=== PATIENT | female | born 1995 | race Caucasian/White ===

== ENCOUNTER 2022-01-28 16:51 | Observation (INO) | payer BC ==
[2022-01-28] MEDS: Dexamethasone 4 MG Tab PO STA (17:27)
[2022-01-28] MEDS ORDERED: Acetaminophen 325 MG Tab PO PRN (17:51)
[2022-01-28] MEDS ORDERED: Ondansetron 4 MG Tab.DIS PO PRN (17:51)
[2022-01-28] MEDS ORDERED: Non-Formulary Medication 1 Each (Budesonide/Formoterol Fumarate [Symbicort 80-4.5 Mcg Inha INH PRN (17:51)
[2022-01-28] MEDS: Multivitamin Tab PO SCH (19:33)
[2022-01-29] MEDS: Cyanocobalamin (Vitamin B12) 1,000 MCG Tab PO SCH (07:50)
[2022-01-29] MEDS: Loratadine 10 MG Tab PO SCH (07:50)
[2022-01-29] MEDS: Dexamethasone 4 MG Tab PO SCH (07:51)
[2022-01-29 07:59] VITALS: BP 100/50; PULSE 83
== END 2022-01-29 09:19 | disposition home or self-care (01) ==
LOC: CC.ED 16:51 → CC.MS 17:19 → UNDOADMOB 17:19 → CC.MS 17:28
PROVIDERS: ADMIT Nurse Practitioner Family; ATTEND Nurse Practitioner Family
DX: D69.6 Thrombocytopenia, unspecified (principal); Z88.1 Allergy status to other antibiotic agents; Z79.899 Other long term (current) drug therapy
CPT/HCPCS: 36415; 80053; 85025; 99217; 99220; 99284; A9270-GY; G0378; J8540